=== PATIENT | female | born 1960 | race Caucasian/White ===

== ENCOUNTER 2017-05-22 13:09 | Emergency (ER) | payer BC ==
[2017-05-22 13:18] VITALS: BP 159/95
--- NOTE | 2017-05-22 13:46 | UC ---
General HPI - HPI Summary HPI Summary: ONSET OF RIGHT FACIAL NUMBNESS TODAY AROUND 12:20PM. LASTED ABOUT 5 MINUTES THEN RESOLVED. PT FELT HER FACE PARMINDER. WAS WORRIED SHE WAS HAVING A STROKE. HAD A SHARP RIGHT FRONTAL PENA YESTERDAY THAT LASTED ALL DAY. PT IS NOT A PENA PERSON NORMALLY. DENIES FEVER, SPEECH DISTURBANCE, GAIT INSTABILITY, WEAKNESS OF THE EXTREMITIES. ACTUALLY FEELS OKAY AT TIME OF EXAM. - History of Current Complaint Chief Complaint: UCGeneralIllness Stated Complaint: FACE NUMBNESS Time Seen by Provider: 05/22/17 13:30 Hx Obtained From: Patient Onset/Duration: Sudden Onset, Lasting Minutes, Resolved Onset Severity: Moderate Current Severity: None - Allergy/Home Medications Allergies/Adverse Reactions: Allergies Allergy/AdvReac Type Severity Reaction Status Date / Time No Known Allergies Allergy Verified 05/22/17 13:14 PMH/Surg Hx/FS Hx/Imm Hx Previously Healthy: Yes - Surgical History Surgical History: Yes Surgery Procedure, Year, and Place: APPENDECTOMY AT AGE 10. 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 - Family History Known Family History: Positive: Cardiac Disease, Hypertension - Social History Alcohol Use: Occasionally Substance Use Type: None Smoking Status (MU): Never Smoked Tobacco Have You Smoked in the Last Year: No - Immunization History Most Recent Influenza Vaccination: 2016 Most Recent Tetanus Shot: UTD Hx Tetanus, Diphtheria Vaccination: Yes Vaccination Up to Date: Yes Review of Systems Constitutional: Negative Skin: Negative Respiratory: Negative Cardiovascular: Negative Gastrointestinal: Negative Neurological: Headache, Numbness All Other Systems Reviewed And Are Negative: Yes Physical Exam Triage Information Reviewed: Yes Appearance: Well-Appearing, No Pain Distress, Well-Nourished Vital Signs: Initial Vital Signs Temp 98.5 F 05/22/17 13:14 Pulse 74 05/22/17 13:14 Resp 16 05/22/17 13:14 BP 159/95 05/22/17 13:14 Pulse Ox 98 05/22/17 13:14 Vital Signs Reviewed: Yes Eyes: Positive: Conjunctiva Clear ENT: Positive: Hearing grossly normal, Pharynx normal, TMs normal Neck: Positive: Supple, Nontender, No Lymphadenopathy Respiratory Exam: Normal Cardiovascular Exam: Normal Abdomen Description: Positive: Soft Musculoskeletal: Positive: No Edema Neurological: Positive: Alert, Other: - CN II-XII GROSSLY INTACT BILATERALLY. NEG PRONATOR DRIFT. FINGER TO NOSE INTACT BILATERALLY. HEEL TO LANDERS INTACT BILATERALLY. RAPID ALTERNATING MVMTS INTACT. 5/5 STRENGTH Psychological: Positive: Age Appropriate Behavior Skin: Negative: rashes Diagnostics - EKG Cardiac Rate: NL - 71BPM Cardiac Rhythm: Sinus: Normal Ectopy: None ST Segment: Normal Course/Dx - Differential Dx - Multi-Symptom Provider Diagnoses: RIGHT FACIAL NUMBNESS/PENA - Physician Notifications Discussed Patient Care With: Shala Begum - TO [facility] BY AMBULANCE Instructed by Provider To: MD Will See In ED Discharge - Discharge Plan Condition: Stable Disposition: TRANS HIGHER LVL OF CARE FAC Referrals: Emilie Shea MD [Primary Care Provider] -
== END 2017-05-22 13:54 | disposition short-term general hospital (02) ==
LOC: UCEAST 13:09
DX: R20.0 Anesthesia of skin (principal)
CPT/HCPCS: 99213; G0463

== ENCOUNTER 2017-05-22 14:06 | Emergency (ER) | payer BC ==
[2017-05-22 14:15] VITALS: BP 130/72
[2017-05-22] MEDS ORDERED: NS 0.9% 1000 ML* 1,000 ML IV ONE (15:10)
[2017-05-22] MEDS ORDERED: Metoclopramide IV* 5 MG/ML 2 ML VIAL IV SLOW PU ONE (15:17)
[2017-05-22 15:25] LABS: Hematocrit 42 % (35-47); Hemoglobin 13.7 g/dl (12.0-16.0); Mean Corpuscular HGB Conc 33 g/dl (31-36); Mean Corpuscular Hemoglobin 31 pg (27-31); Mean Corpuscular Volume 94 fL (80-97); Mean Platelet Volume 11 um3 (7.4-10.4); Red Blood Count 4.43 10^6/ul (4.0-5.4); Red Cell Distribution Width 14 % (10.5-15); White Blood Count 5.4 10^3/ul (3.5-10.8)
--- NOTE | 2017-05-22 15:34 | RAD ---
HISTORY: Neurological changes, history of acoustic neuroma COMPARISONS: June 13, 2006 TECHNIQUE: Multiple contiguous axial CT scans were obtained of the head without intravenous contrast. FINDINGS: HEMORRHAGE/INFARCT: There is no hemorrhage or acute infarct. MASSES/SHIFT: There is no mass or shift. EXTRA-AXIAL SPACES: There are no extra-axial fluid collections. SULCI AND VENTRICLES: The sulci and ventricles are normal in size and position for the patient's stated age. CEREBRUM: There are no focal parenchymal abnormalities. BRAINSTEM: There are no focal parenchymal abnormalities. CEREBELLUM: There are no focal parenchymal abnormalities. VESSELS: The vessels are grossly normal. PARANASAL SINUSES: The paranasal sinuses are clear. ORBITS: The orbits are unremarkable. BONES AND SOFT TISSUE: No bone or soft tissue abnormalities are noted. OTHER: There is no appreciable CP angle mass, though MRI is more sensitive. IMPRESSION: NO ACUTE INTRACRANIAL PATHOLOGY. PRELIMINARY FINDINGS WERE DISCUSSED WITH DR. CORNELL AT APPROXIMATELY 3:30 PM MAY 22, 2017.
--- NOTE | 2017-05-22 15:41 | RAD ---
HISTORY: Neurological changes COMPARISONS: None VIEWS: 1: frontal portable view of the chest at 3:32 PM FINDINGS: LINES AND TUBES: None. CARDIOMEDIASTINAL SILHOUETTE: The cardiomediastinal silhouette is normal for portable technique. PLEURA: The costophrenic angles are sharp. No pleural abnormalities are noted. LUNG PARENCHYMA: The lungs are clear. ABDOMEN: The upper abdomen is clear. There is no subphrenic gas. BONES AND SOFT TISSUES: No bone or soft tissue abnormalities are noted. IMPRESSION: NO ACTIVE CARDIOPULMONARY DISEASE.
[2017-05-22 15:59] LABS: Urine Bilirubin Negative (Negative); Urine Glucose Negative (Negative); Urine Nitrite Negative (Negative)
[2017-05-22 15:59] LABS: Albumin 4.2 g/dL (3.2-5.2); EGFR African American 78.9 (>60); EGFR Non-African American 61.4 (>60); Globulin 3.4 g/dL (2-4); HDL Cholesterol 50.6 mg/dL; Total Bilirubin 0.4 mg/dL (0.2-1.0); Total Protein 7.6 g/dL (6.4-8.9)
--- NOTE | 2017-05-23 13:28 | ED ---
Jolly Foote Nilda, scribed for Feliciano Moreland MD on 05/22/17 at 1517 . Neurological HPI - HPI Summary HPI Summary: This patient is a 57 year old F presenting from [facility] to [facility] with a chief complaint of unilateral right facial numbness and spasms for 3-5 minutes today at work. The patient rates the pain 0/10 in severity. Symptoms aggravated by nothing, and alleviated by spontaneous resolution. Patient reports splitting headache (yesterday, alleviated by Advil, and no longer present), and right- sided facial droop (resolved). Patient denies recent stressors, blurry vision, visual floaters, strange smells, speech issues, and nausea. Patient notes these episodes have sparsely occurred before but today was more severe. The patient does not smoke. PSHx of acoustic neuroma removal. No PMHx of HLD, HTN, and DM. No FHx of CVA or migraines. - History of Current Complaint Chief Complaint: EDNeurologicalDeficit Stated Complaint: RIGHT SIDED FACIAL NUMBNESS/COMING FROM [facility] Time Seen by Provider: 05/22/17 14:55 Hx Obtained From: Patient Onset/Duration: Sudden Onset, Started hours ago Current Severity: None Neurological Deficit Location: Facial Pain Intensity: 0 Pain Scale Used: 0-10 Numeric Character: Numbness/Tingling - Right sided facial numbness (resolved) Aggravating: Nothing Alleviating: Spontanious Resolution Associated Signs and Symptoms: Positive: Headache - resolved, Numbness - resolved. Negative: Nausea/Vomiting - Allergy/Home Medications Allergies/Adverse Reactions: Allergies Allergy/AdvReac Type Severity Reaction Status Date / Time No Known Allergies Allergy Verified 05/22/17 13:14 PMH/Surg Hx/FS Hx/Imm Hx Endocrine/Hematology History: Denies: Hx Diabetes, Hx Thyroid Disease Cardiovascular History: Denies: Hx Hypertension Respiratory History: Denies: Hx Asthma, Hx Chronic Obstructive Pulmonary Disease (COPD) GI History: Denies: Hx Ulcer Musculoskeletal History: Denies: Hx Rheumatoid Arthritis, Hx Osteoporosis - Surgical History Surgery Procedure, Year, and Place: APPENDECTOMY AT AGE 10. 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 Infectious Disease History: No Infectious Disease History: Denies: Hx Hepatitis, Hx Human Immunodeficiency Virus (HIV), History Other Infectious Disease, Traveled Outside the [place] in Last 30 Days - Family History Known Family History: Positive: Cardiac Disease, Hypertension, Other - Negative CVA and migraine. - Social History Alcohol Use: Occasionally Substance Use Type: Reports: None Smoking Status (MU): Never Smoked Tobacco Have You Smoked in the Last Year: No Review of Systems Negative: Fever, Chills Positive: Other - negative visual floaters. Negative: Blurred Vision, Erythema ENT: Other - negative strange smells Negative: Sore Throat Negative: Chest Pain Negative: Shortness Of Breath, Cough Negative: Abdominal Pain, Vomiting, Nausea Negative: dysuria, hematuria Negative: Myalgia, Edema Negative: Rash Neurological: Other - right sided facial droop (resolved); negative dizziness, speech issues Positive: Headache - resolved, Numbness - right sided facial numbness and spasms (resolved) Psychological: Other - negative recent stressors All Other Systems Reviewed And Are Negative: Yes Physical Exam - Summary Physical Exam Summary: Constitutional: Well-developed, Well-nourished, Alert. (-) Distressed Skin: Warm, Dry HENT: Eyes: Conjunctiva normal Neck: Musculoskeletal ROM normal neck. (-) JVD, (-) Stridor, (-) Tracheal deviation Cardio: Rhythm regular, rate normal, Heart sounds normal; Intact distal pulses; The pedal pulses are 2+ and symmetric. Radial pulses are 2+ and symmetric. (-) Murmur Pulmonary/Chest wall: Effort normal. (-) Respiratory distress, (-) Wheezes, (-) Rales Abd: Soft. (-) Tenderness, (-) Distension, (-) Guarding, (-) Rebound Musculoskeletal: (-) Edema Lymph: (-) Cervical adenopathy Neuro: Alert, Oriented x3, Strength normal, Cranial nerves II-XII are grossly intact. (-) Dysmetria, (-) Nystagmus, (-) Ataxia by finger to nose testing, (-) Sensory deficit. Psych: Mood and affect Normal Triage Information Reviewed: Yes Vital Signs On Initial Exam: Initial Vitals Temp Pulse Resp BP Pulse Ox 96.8 F 65 16 130/72 98 05/22/17 14:12 05/22/17 14:12 05/22/17 14:12 05/22/17 14:12 05/22/17 14:12 Vital Signs Reviewed: Yes - [place] Coma Scale Coma Scale Total: 15 Diagnostics - Vital Signs Vital Signs Temp Pulse Resp BP Pulse Ox 05/22/17 14:12 96.8 F 65 16 130/72 98 - Laboratory Result Diagrams: 05/22/17 13:40 05/22/17 13:40 Lab Statement: Any lab studies that have been ordered have been reviewed, and results considered in the medical decision making process. - Radiology CXR Radiology Interpretation Completed By: Radiologist - no active cardiopulmonary disease - CT Brain CT Interpretation Completed By: Radiologist - Reveals no acute intracranial pathology. ED Physician reviewed report and agrees. - EKG 1653 Cardiac Rate: NL EKG Rhythm: Sinus Rhythm EKG Interpretation: No STEMI NIH Scale - NIH Scale Level of Consciousness: Alert/Keenly Responsive Ask Patient the Month and His/Her Age: Both Correct Ask Pt to Open/Close Eyes and Supervisor Chassis Assembly/Release Non-Paretic Hand: Both Correctly Best Gaze (Only Horizontal Eye Movement): Normal Visual Field Testing: No Visual Loss Facial Paresis-Pt to Smile & Close Eyes or Grimace Symmetry: Normal/Symmetrical Motor Function - Right Arm: No Drift-Holds 10 Seconds Motor Function - Left Arm: No Drift-Holds 10 Seconds Motor Function - Right Leg: No Drift-Holds 10 Seconds Motor Function - Left Leg: No Drift-Holds 10 Seconds Limb Ataxia-Must be out of Proportion to Weakness Present: Absent Sensory (Use Pinprick to Test Arms/Legs/Trunk/Face): Normal Best Language (Describe Picture, Name Items): No Aphasia Dysarthria (Read Several Words): Normal Extinction and Inattention: No Abnormality Total Score: 0 Course/Dx - Course Assessment/Plan: This patient is a 57 year old F presenting from [facility] to [facility] with a chief complaint of unilateral right facial numbness and spasms for 3-5 minutes today at work. The patient rates the pain 0/10 in severity. Symptoms aggravated by nothing, and alleviated by spontaneous resolution. Patient reports splitting headache (yesterday, alleviated by Advil, and no longer present), and right-sided facial droop (resolved). Patient denies recent stressors, blurry vision, visual floaters, strange smells, speech issues, and nausea. Patient notes these episodes have sparsely occurred before but today was more severe. The patient does not smoke. PSHx of acoustic neuroma removal. No PMHx of HLD, HTN, and DM. No FHx of CVA or migraines. EKG [1653] NSR, 62bpm , No STEMI. CT Brain, per radiologist, reveals no acute intracranial pathology. CXR, per radiologist, reveals no active cardiopulmonary disease. ED physician has reviewed these radiology reports and agrees. We discussed patient care with Dr. Hudson (Neuro) who notes symptoms do not sound like stroke. He recommends outpatient MRI and wants to see her in his office this week. Patient is stable and will be discharged with a diagnosis of facial numbness and a follow up from Dr. Hudson in 2-3 days. The patient is agreeable with this plan. - Diagnoses Provider Diagnoses: Facial numbness Discharge - Discharge Plan Condition: Stable Disposition: HOME Referrals: Jalen Hudson MD [Medical Doctor] - 3 Days Additional Instructions: RETURN TO THE EMERGENCY DEPARTMENT FOR CHANGING OR WORSENING SYMPTOMS. The documentation as recorded by the Jolly albrecht Nilda accurately reflects the service I personally performed and the decisions made by , Feliciano Moreland MD.
[2017-05-25 15:57] LABS: B garinii/B afzelii PCR Negative (Negative); B mayonii PCR Negative (Negative)
== END 2017-05-22 18:08 | disposition home or self-care (01) ==
LOC: ED 14:06
DX: R51 Headache (principal); R20.0 Anesthesia of skin
CPT/HCPCS: 36415; 70450; 71010; 80053; 80061; 81003; 83605; 84484; 85025; 85610; 85730; 86850; 86900; 86901; 87476; 87798; 93005; 96361; 96374; 99282; J2765